=== PATIENT | female | born 1965 ===

== ENCOUNTER 2019-10-23 21:35 | Emergency (ER) | payer OTHER ==
[~2019-10-23] VITALS: Ht 175.3 cm; Wt 108.9 kg
== END 2019-10-23 22:26 | disposition home or self-care (01) ==
LOC: ER 21:35
DX: H10.211 Acute toxic conjunctivitis, right eye (principal); T50.991A Poisoning by other drugs, medicaments and biological substances, accidental (unintentional), initial encounter; Y92.89 Other specified places as the place of occurrence of the external cause

== ENCOUNTER → 2019-11-26 17:16 | Outpatient (CLI) | payer OTHER | END | disposition home or self-care (01) | LOC: LAB 17:16 | DX: J11.1 Influenza due to unidentified influenza virus with other respiratory manifestations (principal) ==